=== PATIENT | male | born 1980 | race Caucasian/White ===

== ENCOUNTER 2018-11-29 07:04 | Day surgery (SDC) | payer BC ==
[~2018-11-29] VITALS: Ht 185.4 cm; Wt 102.1 kg
[~2018-11-29 07:04] MED LIST: BUPROPION XL150 MG PO; CYCLOBENZAPRINE10 MG PO; INDOMETHACIN50 MG PO; LORTAB 5-325 M1 EACH PO; PERCOCET 10-321 EACH PO; PHENDIMETRAZIN105 MG PO; ULTRAM50 MG PO
--- NOTE | 2018-11-29 10:15 | NUR ---
11/29/18 [place]5 Janice Cameron 0949- PT ARRIVES TO PACU AWAKE. PT REPORTS PAIN TO BE AN 8/10, DENIES NAUSEA OR DIZZINESS. RESP EVEN AND UNLABORED. OXYGEN SAT MID TO HIGH 90'S ON RA. 1002- PT IS DENING WANTING ANY MORE PAIN MEDICATION AT THIS TIME. EDUCATED PT THAT IF HE CHANGES HIS MIND AND WANTS MORE PAIN MEDICATION TO LET THIS RN KNOW. PT STATES UNDERSTANDING. RATES PAIN A 7/10. 1004- PT REPORTS HE WOULD LIKE SOME MORE PAIN MEDICATION. 1011- PT GIVEN ICE WATER PER REQUEST. PT TOLERATING WELL.
--- NOTE | 2018-11-29 10:28 | NUR ---
PT SITTING UP IN BED DRINKING WATER AND EATING JELL-O. TOLERATING WELL.
--- NOTE | 2018-11-29 11:33 | NUR ---
PATIENT UP TO BATHROOM AND TOLERATES THAT WELL. PATIENT VOIDS AND REQ DC HOME. DC INSTRUCTIONS ARE GIVEN AND PATIENT AND SPOUSE VERBALIZE UNDERSTANDING. PATIENT DRESSING HIMSELF IN THE PRESENCE OF HIS SPOUSE.
--- NOTE | 2018-11-29 13:15 | NUR ---
PT ALERT, ORIENTED AND SUPPORTED BY HIS TONY. IT WILL BE A STRUGGLE FOR THIS PT TO LET HIS BODY HEAL. ENCOURAGED HIM TO BE CAUTIOUS WITH DOING TOO MUCH TOO SOON. GOOD VISIT, PT REQUESTED PRAYER, WILL FOLLOW NEEDED
--- NOTE | 2018-11-29 13:49 | OR ---
[facility] [address] [place], [place] [address] Signed DATE OF OPERATION: 11/29/2018 SURGEON: Millie Lopez MD PREOPERATIVE DIAGNOSIS: Lateral meniscal tear, right knee, bucket handle. POSTOPERATIVE DIAGNOSIS: Lateral meniscal tear, right knee, bucket handle. PROCEDURE: Right knee arthroscopy with partial lateral meniscectomy. ANESTHESIA: General. SPECIMENS AND COMPLICATIONS: There were no specimens or complications. TOURNIQUET TIME: About 25 minutes. WHAT WAS DONE: The patient was taken to the operating room. After anesthesia was induced and airway secured, right lower extremity was positioned, prepped and draped in the routine sterile fashion. The leg was exsanguinated with an Esmarch bandage. Pneumatic tourniquet was inflated to about 300 mmHg pressure. The outflow cannula was placed superomedially and we got about 30 mL of clear synovial fluid out of the knee. The arthroscope was inserted through the standard anterolateral portal. Using transillumination and localization with a spinal needle, we recreated an anteromedial portal. A nerve hook was introduced. Diagnostic arthroscopy revealed an unremarkable suprapatellar pouch. The patellofemoral joint was unremarkable as was the medial recess of the medial compartment and the intercondylar notch. Lateral compartment showed a large macerated bucket handle tear. The lateral meniscus actually stuck in the notch. With significant varus stress to the knee, we were able to reduce it, but it did not appear to be a repairable lesion. There was some scuffing of the femoral condyle consistent with his long history of knee intermittent locking and unlocking. We then used a large basket forceps. We completed the tear posteriorly than anteriorly. Fragment was delivered out of the knee. We then used the motorized shaver to smooth Electronically Signed By: MILLIE LOPEZ MD 11/29/18 1349 PATIENT NAME: SANDY VERA OPERATIVE REPORT DATE OF : 80 REPORT #: [id number] PHYSICIAN: MILLIE LOPEZ MD PCP: TONIO SHARMA REPORT IS CONFIDENTIAL AND NOT TO BE RELEASED WITHOUT AUTHORIZATION [facility] [address] [place], [place] [address] Signed and contour the edges of the meniscectomy. Knee was copiously irrigated and drained. The portals were closed and sterile bulky dressing applied. The patient was awakened and taken to recovery room where he arrived in stable condition. Counts were correct and antibiotic protocols were followed. Millie Lopez MD WFB/MODL /[id number] Copies: ~ Electronically Signed By: MILLIE LOPEZ MD 11/29/18 1349 PATIENT NAME: SANDY VERA GENE OPERATIVE REPORT DATE OF : 80 REPORT #: [id number] PHYSICIAN: MILLIE LOPEZ MD PCP: TONIO SHARMA REPORT IS CONFIDENTIAL AND NOT TO BE RELEASED WITHOUT AUTHORIZATION
== END 2018-11-29 11:45 | disposition home or self-care (01) ==
LOC: DS 07:04 → OPS 07:04 → DS 10:30 → OPS 10:30
PROVIDERS: Orthopaedic Surgery
PROC: 0SBD4ZZ Excision of Left Knee Joint, Percutaneous Endoscopic Approach (ICD-10-PCS; principal; 2018-11-29 09:00)
DX: S83.252A Bucket-handle tear of lateral meniscus, current injury, left knee, initial encounter (principal); H02.401 Unspecified ptosis of right eyelid; X58.XXXA Exposure to other specified factors, initial encounter
CPT/HCPCS: 01400; J0330; J0690; J1100; J1885; J2250; J2405; J2704; J3010; J3301; J7120

== ENCOUNTER 2021-01-09 20:24 | Emergency (ER) | payer BC ==
[~2021-01-09] VITALS: Ht 185.4 cm; Wt 102.1 kg
== END 2021-01-09 20:55 | disposition home or self-care (01) ==
LOC: ED 20:24
DX: S06.9X9A Unspecified intracranial injury with loss of consciousness of unspecified duration, initial encounter (principal); W01.198A Fall on same level from slipping, tripping and stumbling with subsequent striking against other object, initial encounter; F17.200 Nicotine dependence, unspecified, uncomplicated
CPT/HCPCS: 99284

== ENCOUNTER 2025-02-03 23:01 | Emergency (ER) | payer BC ==
[~2025-02-03] VITALS: Ht 185.4 cm; Wt 113.0 kg
[~2025-02-03 23:01] MED LIST changes: +DOXYCYCLINE HY100 MG PO; +METHYLPREDNISOLO4 M1 PO; +PREDNISONE20 MG PO; +VENTOLIN HFA18 GM INH
[2025-02-03] MEDS ORDERED: KETOROLAC TROMETHAMINE 30 MG/ML VIAL IV ONE (23:45)
[2025-02-03] MEDS ORDERED: LACTATED RINGER'S 1,000 ML IV ONE (23:45)
[2025-02-03 23:57] LABS: ALBUMIN 3.6 g/dL (3.4-5.0); ANION GAP 12.7 (7-21); BILIRUBIN, TOTAL 0.6 mg/dL (0.2-1.0); BUN/CREATININE RATIO 9.61 (6.0-28.6); CALCIUM 8.9 mg/dL (8.5-10.1); CREATININE, SERUM 1.56 mg/dL (0.70-1.30); POTASSIUM 3.7 mmol/L (3.5-5.1); PROTEIN, TOTAL 7.2 g/dL (6.4-8.2)
[2025-02-04 00:14] LABS: BASOPHILS 0.6 % (0-2); EOSINOPHILS 1.8 % (0-6); HEMOGLOBIN 14.6 g/dL (12.0-18.0); LYMPHOCYTES 17.7 % (24-44); MCH 27.3 (27-36); MCHC 34.8 g/dl (30-36); MCV 78.5 fl (81-99); MONOCYTES 9.5 % (0-12); NEUTROPHILS 70.4 % (39-80); PLATELET COUNT 229 K/uL (140-440); RBC 5.35 M/ul (4.3-5.7); RDW 15.1 (10.5-15.0)
[2025-02-04] MEDS ORDERED: COLCHICINE 0.6 MG TAB PO ONE ×2 (00:45→01:45)
[2025-02-04] MEDS ORDERED: COLCHICINE0.6 M1 PO (01:48)
[2025-02-04 01:53] VITALS: BP 123/65
== END 2025-02-04 02:00 | disposition home or self-care (01) ==
LOC: ED 23:01
PROVIDERS: Internal Medicine
DX: M10.9 Gout, unspecified (principal); M13.0 Polyarthritis, unspecified; F17.200 Nicotine dependence, unspecified, uncomplicated
CPT/HCPCS: 36415; 80053; 82550; 83880; 84550; 85025; 86140; 96374; 99283-25; J1885; J7121